=== PATIENT | male | born 1990 | race Caucasian/White ===

== ENCOUNTER 2021-05-06 17:25 | Emergency (ER) | payer OTHER, SELFPAY ==
--- NOTE | ~2021-05-06 | XR_ITS ---
[id number] DATE: 05/06/2021 17:52 INDICATION: Fall. Right sided chest, rib pain TECHNIQUE: PA chest. 3 views of the right ribs. COMPARISON: None FINDINGS:No right rib fracture or bone destruction is evident. Normal heart size. No hilar or mediastinal enlargement. No pulmonary infiltrate or consolidation, ple ural effusion or pulmonary vascular congestion or pneumothorax. Mild thoracic and lumbar scoliosis IMPRESSION: No evidence of right rib fracture No active cardiopulmonary disease Reviewed, dictated and finalized at [facility]. Reviewed, dictated and finalized at [facility].
[2021-05-06 17:40] VITALS: BP 117/79; PULSE 53; RESP 16; TEMP 36.4; O2SAT 100
--- NOTE | 2021-05-06 18:21 | ED.GENADULT ---
HPI - General Adult General Chief complaint: Unspecified Stated complaint: Rib Pain Time Seen by Provider: 05/06/21 18:21 Source: patient Mode of arrival: ambulatory Limitations: no limitations History of Present Illness HPI narrative: Juancarlos Martinez is a 31-year-old male who fell down a flight of stairs yesterday as he was walking on the steps and socks hit his right ribs on the stairs and has difficulty twisting and says he has pain when he tries to take a deep breath. He has PMH of hypothyroid and depression, he is a nondrinker non-smoker Related Data Home Medications Medication Instructions Recorded Confirmed Descovy 05/06/21 Lexapro 05/06/21 levothyroxine 05/06/21 Allergies Allergy/AdvReac Type Severity Reaction Status Date / Time No Known Allergies Allergy Verified 05/06/21 18:26 Review of Systems Review of Systems: CONSTITUTIONAL: Denies fever, chills, sweats. EYES: Denies visual changes, redness, discharge. ENT: Denies rhinorrhea, congestion, sore throat, otalgia. CARDIOVASCULAR: Denies chest pain, palpitations, edema. RESPIRATORY: Denies dyspnea, wheezing, cough GASTROINTESTINAL: Denies abdominal pain, nausea, vomiting, diarrhea. GENITOURINARY: Denies dysuria, hematuria, abnormal discharge SKIN: Denies rash or itching. NEUROLOGIC: Denies numbness, or focal weakness. PSYCHIATRIC: Denies anxiety or depression. Right posterior rib pain after fall PMFSH Past Medical History Medical History No acute medical problems Family History Family History Other No acute medical problems Social History Social History (Updated 05/06/21 @ 18:22 by Janis Campuzano CNP) Smoking status: Never smoker Alcohol intake: never Gender identity (if verbalized by the patient): Male Comments At time of signature, I agree with nursing past medical, surgical, social and family history. There is no relevant family history pertinent to the presenting complaint. Exam Narrative: GENERAL: This is a well-nourished, well-developed patient, in mild distress. HEAD: normocephalic, atraumatic. EYES: Sclera clear/white. Vision is grossly intact. EARS: External ears normal, . Hearing grossly intact. NOSE: External nose normal without nasal discharge, nares without redness, no rhinorrhea. THROAT: Mucous membranes moist, NECK: Neck supple, non-tender CARDIOVASCULAR: Regular rate and rhythm without murmurs, gallops, or rubs. RESPIRATORY: Clear to auscultation. Breath sounds equal bilaterally. No wheezes, rales, or rhonchi. Patient has pain and tenderness on the right posterior ribs at 3 and 4 GASTROINTESTINAL: Abdomen soft, non-tender, SKIN: warm, intact with no suspicious lesions or rash, good texture and turgor. NEURO: awake, alert, and oriented to person, place and time. There were no obvious focal neurologic abnormalities. Steady gait EXTREMITIES: Normal range of motion. BACK: Nontender without deformity Course Course Emergency Course: Patient comes after fall downstairs yesterday going down wooden stairs inside sock feet and hit his right posterior rib cage X-ray shows no evidence of right rib fracture no pulmonary infiltrates or pleural effusion Start on baclofen and ibuprofen 800 mg along with incentive spirometer Vital Signs Vital signs: Vital Signs Temperature 97.6 F 05/06/21 17:40 Pulse Rate 53 L 05/06/21 17:40 Respiratory Rate 16 05/06/21 17:40 Blood Pressure 117/79 05/06/21 17:40 Pulse Oximetry 100 05/06/21 17:40 Temperature 97.6 F 05/06/21 17:40 Pulse Rate 53 L 05/06/21 17:40 Respiratory Rate 16 05/06/21 17:40 Blood Pressure 117/79 05/06/21 17:40 Pulse Oximetry 100 05/06/21 17:40 Medical Decision Making Differential Diagnosis Differential Diagnosis: Rib fracture versus rib contusion versus back pain or injury Vital Signs Vital Signs: Vital Sign
== END 2021-05-06 18:30 | disposition home or self-care (01) ==
PROVIDERS: Emergency Provider Nurse Practitioner
DX: S20.211A Contusion of right front wall of thorax, initial encounter (principal); W10.9XXA Fall (on) (from) unspecified stairs and steps, initial encounter
CPT/HCPCS: 71101; 99203; G0463